=== PATIENT | female | born 1935 | race Caucasian/White ===

== ENCOUNTER → 2016-09-01 | Outpatient (CLI) | payer MEDICARE, OTHER ==
[~2016-09-01] MED LIST: ALDACTONE 25MG25 M1 PO; ALPRAZOLAM0.5 MG PO; ASPIR-LOW81 MG PO; ASPIR-LOX325 MG PO; ASPIRIN 81M81 MG/TA2 PO; ASPIRIN E.C. 8181 MG PO; ATENOLOL50 MG PO; BENICAR40 MG PO; BETAPACE 80MG80 MG PO; CARDIZEM CD 18180 MG PO; CLARITIN 1010 MG/TAB PO; CLEOCIN HCL300 MG PO; COUMADIN 5MG5 MG/TAB PO; COZAAR 50MG50 MG/TAB PO; COZAAR100 MG PO; ELIQUIS 5MG PO; ENTRESTO 24 MG1 EACH PO; HYGROTON 2525 MG/TAB; K-TAB20 PO; LEVOTHYROXIN0.112 MG PO; LIPITOR 10MG10 MG PO; LOPRESSOR 225 MG/TAB PO; LOPRESSOR 550 MG/TAB PO; NORVASC 5MG5 MG/TAB PO; PACERONE100 MG PO; PACERONE200 MG PO; PACERONE400 MG PO; PLAVIX 75MG TAB75 MG PO; POTASSIUM CH2 MEQ/ML; PRADAXA75 MG PO; SYNTHROID 0.10.15 MG PO; SYNTHROID0.125 MG/T PO; TAZTIA240 PO; XANAX 1MG1 MG PO; XARELTO20 MG PO; [UNRECOGNIZED DRUG - OTHER] PO
== END ==
LOC: MC.RAD 08:11
DX: Z12.31 Encounter for screening mammogram for malignant neoplasm of breast (principal)

== ENCOUNTER 2016-09-06 10:55 | Day surgery (SDC) | payer MEDICARE, OTHER ==
[~2016-09-06] VITALS: Ht 165.4 cm; Wt 66.0 kg
[2016-09-06] VITALS (11 sets, daily range): BP systolic 128–206; BP diastolic 54–120; PULSE 46–92; TEMP 96.9
[~2016-09-06 10:55] MED LIST changes: -ALDACTONE 25MG25 M1 PO; -ASPIRIN E.C. 8181 MG PO; -ELIQUIS 5MG PO; -ENTRESTO 24 MG1 EACH PO; -HYGROTON 2525 MG/TAB; -LOPRESSOR 550 MG/TAB PO; -PACERONE200 MG PO; -PLAVIX 75MG TAB75 MG PO
[2016-09-06] MEDS ORDERED: ASPIRIN E.C. 8181 MG PO (12:19)
[2016-09-06] MEDS ORDERED: LOPRESSOR 550 MG/TAB PO (12:20)
[2016-09-06] MEDS ORDERED: LIPITOR 10MG10 MG PO (12:21)
[2016-09-06] MEDS ORDERED: ELIQUIS 5MG PO (12:23)
[2016-09-06] MEDS ORDERED: HYGROTON 2525 MG/TAB (12:24)
[2016-09-06 13:19] LABS: INR 1.6 (0.8-3.0)
[2016-09-06 13:21] LABS: POTASSIUM 3.8 mmol/L (3.4-5.0)
[2016-09-06 13:57] LABS: THYROID STIMULATING HORMONE 0.743 uIU/mL (0.465-4.680)
[2016-09-06] MEDS ORDERED: PACERONE200 MG PO (15:08)
== END 2016-09-06 16:45 | disposition home or self-care (01) ==
LOC: EUO 10:55 → COL.RAD 11:00 → EUO 16:45
PROVIDERS: Internal Medicine Interventional Cardiology
DX: I48.0 Paroxysmal atrial fibrillation (principal); I10 Essential (primary) hypertension; I34.0 Nonrheumatic mitral (valve) insufficiency; Z79.899 Other long term (current) drug therapy; Z79.82 Long term (current) use of aspirin; Z79.01 Long term (current) use of anticoagulants
CPT/HCPCS: J2250; J3010; J7030

== ENCOUNTER 2016-10-21 18:09 | Observation (INO) | payer MEDICARE, OTHER ==
[~2016-10-21] VITALS: Ht 165.3 cm; Wt 65.0 kg
[~2016-10-21 18:09] MED LIST changes: +ASPIRIN E.C. 8181 MG PO; +ELIQUIS 5MG PO; +HYGROTON 2525 MG/TAB; +LOPRESSOR 550 MG/TAB PO; +PACERONE200 MG PO
[2016-10-22] VITALS (8 sets, daily range): BP systolic 120–184; BP diastolic 42–70; PULSE 46–54; TEMP 97.6
[2016-10-22] MEDS ORDERED: LIPITOR 10MG10 MG PO (08:25)
[2016-10-22 09:10] LABS: HEMOGLOBIN 15.2 g/dl (12.5-16.0); MEAN CELL VOLUME 95 fl (80.0-100.0); MEAN CORPUSCULAR HEMOGLOBIN 32 pg (27.0-31.0); MEAN CORPUSCULAR HGB CONC 34 g/dl (33.0-37.0); MEAN PLATELET VOLUME 9.6 fl (7.4-10.4); PLATELET COUNT 211 K/mm3 (130-400); RED BLOOD COUNT 4.74 M/mm3 (4.10-5.30); REDCELL DISTRIBUTION WIDTH-CV 14.5 % (11.5-14.5); WHITE BLOOD COUNT 6.5 K/mm3 (4.8-10.8)
[2016-10-22 09:28] LABS: INR 1.1 (0.8-3.0); PROTHROMBIN TIME 12.4 SECONDS (9.7-12.8)
[2016-10-22 09:29] LABS: CALCIUM 9.4 mg/dL (8.4-10.2); CREATININE, serum 0.93 mg/dL (0.52-1.25); POTASSIUM 4.1 mmol/L (3.4-5.0)
[2016-10-22 09:31] LABS: PARTIAL THROMBOPLASTIN TIME 32.9 SECONDS (26.0-37.0)
[2016-10-22] MEDS ORDERED: ENTRESTO 24 MG1 EACH PO (10:39)
[2016-10-22] MEDS ORDERED: PLAVIX 75MG TAB75 MG PO (17:54)
[2016-10-22] MEDS ORDERED: ALDACTONE 25MG25 M1 PO (18:47)
[2016-10-23 03:31] VITALS: BP 125/43; PULSE 50; TEMP 97.8
== END 2016-10-23 08:30 | disposition home or self-care (01) ==
LOC: MEDICAL 18:09
PROVIDERS: Internal Medicine Cardiovascular Disease
DX: I25.10 Atherosclerotic heart disease of native coronary artery without angina pectoris (principal); I34.0 Nonrheumatic mitral (valve) insufficiency; I50.22 Chronic systolic (congestive) heart failure; R00.1 Bradycardia, unspecified; I48.91 Unspecified atrial fibrillation; I73.9 Peripheral vascular disease, unspecified; I10 Essential (primary) hypertension
CPT/HCPCS: C1760; C1769; J0153; J1644; J2250; J3010; Q9967

== ENCOUNTER 2018-04-23 18:18 | Emergency (ER) | payer MEDICARE, OTHER ==
[~2018-04-23] VITALS: Ht 165.1 cm; Wt 65.9 kg
[~2018-04-23 18:18] MED LIST changes: +ALDACTONE 25MG25 M1 PO; +ENTRESTO 24 MG1 EACH PO; +PLAVIX 75MG TAB75 MG PO
[2018-04-23 18:25] VITALS: TEMP 96.7
[2018-04-23] MEDS ORDERED: XARELTO20 MG PO (18:33)
[2018-04-23] MEDS ORDERED: LASIX 20MG TABL20 MG PO (18:34)
[2018-04-23 18:58] LABS: BASO # 0.1 (0.0-0.2); BASO % 0.7 % (0.0-2.0); EOS # 0.1 (0.0-0.7); EOS % 1.6 % (0-4.0); GRAN # 4.8 (1.4-6.5); GRAN % 70.7 % (42.2-75.2); HEMATOCRIT 42.3 % (37.0-47.0); HEMOGLOBIN 14.2 g/dl (12.5-16.0); LYMPH % 15.3 % (20.0-51.0); MEAN CELL VOLUME 97 fl (80.0-100.0); MEAN CORPUSCULAR HEMOGLOBIN 33 pg (27.0-31.0); MEAN CORPUSCULAR HGB CONC 34 g/dl (33.0-37.0); MEAN PLATELET VOLUME 10.2 fl (7.4-10.4); MONO # 0.8 (0.1-0.6); MONO % 11.6 % (1.7-9.3); PLATELET COUNT 220 K/mm3 (130-400); RED BLOOD COUNT 4.35 M/mm3 (4.10-5.30); REDCELL DISTRIBUTION WIDTH-CV 13.3 % (11.5-14.5)
[2018-04-23 19:11] LABS: ALANINE AMINOTRANSFERASE 45 U/L (9-52); ALBUMIN 4.5 gm/dL (3.5-5.0); ALKALINE PHOSPHATASE 76 U/L (50-136); ANION GAP 10 mmol/L (7-16); AST,SGOT 51 U/L (15-37); BILIRUBIN,TOTAL 1.1 mg/dL (0.0-1.0); BLOOD UREA NITROGEN 16 mg/dL (7-17); CALCIUM 9.2 mg/dL (8.4-10.2); CARBON DIOXIDE 28 mmol/L (22-30); CHLORIDE 94 mmol/L (98-107); CREATININE, serum 0.94 mg/dL (0.52-1.25); GLUCOSE 118 mg/dL (74-106); POTASSIUM 3.6 mmol/L (3.4-5.0); SODIUM 131 mmol/L (137-145); TOTAL PROTEIN 8.8 gm/dL (6.4-8.2)
[2018-04-23 19:33] LABS: TROPONIN-I < 0.012 ng/mL (0.000-0.034)
[2018-04-23 20:05] VITALS: BP 135/88; PULSE 55
== END 2018-04-23 20:05 | disposition home or self-care (01) ==
LOC: COL.ER 18:18
PROVIDERS: Emergency Medicine
DX: I48.91 Unspecified atrial fibrillation (principal); Z86.73 Personal history of transient ischemic attack (TIA), and cerebral infarction without residual deficits; Z79.01 Long term (current) use of anticoagulants; Z79.82 Long term (current) use of aspirin
CPT/HCPCS: J2704

== ENCOUNTER 2018-09-21 13:26 | Day surgery (SDC) | payer MEDICARE, OTHER ==
[~2018-09-21] VITALS: Ht 165.1 cm; Wt 67.9 kg
[~2018-09-21 13:26] MED LIST changes: +LASIX 20MG TABL20 MG PO
[2018-09-21 14:16] LABS: INR 1.6 (0.8-3.0); PROTHROMBIN TIME 18.5 SECONDS (9.7-12.8)
[2018-09-21 14:23] LABS: POTASSIUM 4.4 mmol/L (3.4-5.0)
[2018-09-21] MEDS ORDERED: COZAAR100 MG PO (14:24)
[2018-09-21] MEDS ORDERED: MAG-OX 400400 MG/TAB PO (14:26)
[2018-09-21 14:54] LABS: THYROID STIMULATING HORMONE 0.642 uIU/mL (0.465-4.680)
[2018-09-21 15:05] VITALS: BP 142/91; PULSE 83; TEMP 98
[2018-09-21 15:30] VITALS: BP 115/58; PULSE 59
[2018-09-21 15:45] VITALS: BP 119/58; PULSE 66
[2018-09-21 16:00] VITALS: BP 128/58; PULSE 66
--- NOTE | 2018-09-21 16:15 | NUR ---
DISCHARGE INSTRUCTIONS GIVEN TO PT.PT VERBALIZES UNDERSTANDING.INT REMOVED,CATHETER TIP INTACT.
== END 2018-09-21 16:44 | disposition home or self-care (01) ==
LOC: COL.CAR 13:26
PROVIDERS: Internal Medicine Interventional Cardiology
DX: I48.0 Paroxysmal atrial fibrillation (principal); I25.10 Atherosclerotic heart disease of native coronary artery without angina pectoris; I10 Essential (primary) hypertension; Z79.01 Long term (current) use of anticoagulants; I73.9 Peripheral vascular disease, unspecified; E03.9 Hypothyroidism, unspecified; Z86.73 Personal history of transient ischemic attack (TIA), and cerebral infarction without residual deficits; Z79.899 Other long term (current) drug therapy; Z79.82 Long term (current) use of aspirin; Z95.0 Presence of cardiac pacemaker
CPT/HCPCS: J2704; J7030

== ENCOUNTER → 2018-10-17 | Outpatient (CLI) | payer MEDICARE, OTHER ==
[~2018-10-17] MED LIST changes: +MAG-OX 400400 MG/TAB PO
== END ==
LOC: MC.RAD 09-01 10:40
DX: Z12.31 Encounter for screening mammogram for malignant neoplasm of breast (principal)

== ENCOUNTER 2019-02-16 11:25 | Day surgery (SDC) | payer MEDICARE, OTHER ==
[~2019-02-16] VITALS: Ht 165.1 cm; Wt 69.4 kg
[2019-02-16 12:09] VITALS: BP 153/84; PULSE 69; TEMP 97.1
[2019-02-16 13:24] LABS: INR 1.8 (0.8-3.0); PROTHROMBIN TIME 21.9 SECONDS (9.7-12.8)
[2019-02-16 13:52] VITALS: BP 155/73; PULSE 60; TEMP 97
--- NOTE | 2019-02-16 13:57 | NUR ---
Patient tolerated cardioversion and BARAK. PAtient A&Ox4, denies pain and discomfort. IV CDI. VSS. Post op VS being monitored. No further needs expressed from patient. Call light within reach
[2019-02-16 14:07] VITALS: BP 155/73; PULSE 60
[2019-02-16 14:22] VITALS: BP 156/79; PULSE 61; TEMP 97
--- NOTE | 2019-02-16 14:28 | NUR ---
Patient tolerating sips of water without difficulty. Discharge paperwork reviewed with patient and family. Patient verbalzied an understanding of following doctors orders. VSS. Post op VS being monitored. No further needs expressed from patient. Call light within reach
[2019-02-16 14:30] VITALS: BP 153/85; PULSE 61
--- NOTE | 2019-02-16 14:58 | NUR ---
IV removed, tip intact, gauze and coban applied. No further needs expressed from patient. Patient transfered by nursing staff by wheelchair to vehicle with . Personal belongings and discharge paperwork with patient
== END 2019-02-16 15:15 | disposition home or self-care (01) ==
LOC: COL.CAR 11:25
PROVIDERS: Internal Medicine Interventional Cardiology
DX: I48.0 Paroxysmal atrial fibrillation (principal); I34.0 Nonrheumatic mitral (valve) insufficiency; I36.1 Nonrheumatic tricuspid (valve) insufficiency; I11.0 Hypertensive heart disease with heart failure; I50.22 Chronic systolic (congestive) heart failure; I73.9 Peripheral vascular disease, unspecified; I70.1 Atherosclerosis of renal artery; F41.9 Anxiety disorder, unspecified; E03.9 Hypothyroidism, unspecified; Z95.0 Presence of cardiac pacemaker; Z88.1 Allergy status to other antibiotic agents; Z88.2 Allergy status to sulfonamides; Z79.82 Long term (current) use of aspirin; Z79.01 Long term (current) use of anticoagulants; Z86.73 Personal history of transient ischemic attack (TIA), and cerebral infarction without residual deficits; Z82.49 Family history of ischemic heart disease and other diseases of the circulatory system
CPT/HCPCS: J2370; J2704; J7120

== ENCOUNTER → 2019-12-27 | Outpatient (CLI) | payer MEDICARE, OTHER | LOC: MC.RAD 08:28 | DX: Z12.31 Encounter for screening mammogram for malignant neoplasm of breast (principal) ==

== ENCOUNTER → 2020-03-05 | Outpatient (CLI) | payer MEDICARE, OTHER ==
[~2020-03-05] MED LIST changes: -LOPRESSOR 225 MG/TAB PO; +TOPROL XL 50MG50 MG PO
[2020-03-06 15:11] LABS: TROPONIN-I < 0.012 ng/mL (0.000-0.035)
== END ==
LOC: ZCOL.LAB 17:00
PROVIDERS: Internal Medicine Interventional Cardiology
DX: I10 Essential (primary) hypertension (principal); I50.22 Chronic systolic (congestive) heart failure; R06.02 Shortness of breath

== ENCOUNTER → 2020-08-18 | Outpatient (CLI) | payer MEDICARE, OTHER ==
[2020-08-18 17:15] LABS: ANION GAP 7 mmol/L (7-16); BLOOD UREA NITROGEN 12 mg/dL (7-17); CALCIUM 8.7 mg/dL (8.4-10.2); CARBON DIOXIDE 27 mmol/L (22-30); CHLORIDE 90 mmol/L (98-107); GLUCOSE 106 mg/dL (74-106); POTASSIUM 4.5 mmol/L (3.4-5.0); SODIUM 124 mmol/L (137-145)
[2020-08-18 17:32] LABS: MEAN CELL VOLUME 88 fl (80.0-100.0); MEAN CORPUSCULAR HGB CONC 31 g/dl (33.0-37.0); PLATELET COUNT 254 K/mm3 (130-400); RED BLOOD COUNT 3.53 M/mm3 (4.10-5.30); REDCELL DISTRIBUTION WIDTH-CV 16.2 % (11.5-14.5)
[2020-08-18 17:45] LABS: HEMOGLOBIN 9.6 g/dl (12.5-16.0); MEAN CORPUSCULAR HEMOGLOBIN 27 pg (27.0-31.0)
[2020-08-18 17:46] LABS: TROPONIN-I < 0.012 ng/mL (0.000-0.035)
== END ==
LOC: COL.RAD 16:08
PROVIDERS: Internal Medicine Interventional Cardiology
DX: I51.7 Cardiomegaly (principal); J90 Pleural effusion, not elsewhere classified; Z20.822 Contact with and (suspected) exposure to COVID-19; R53.81 Other malaise

== ENCOUNTER → 2020-09-15 | Outpatient (CLI) | payer MEDICARE, OTHER ==
[~2020-09-15] MED LIST changes: +DEMADEX 20MG20 M1 PO
[2020-09-15 14:57] LABS: TROPONIN-I < 0.012 ng/mL (0.000-0.035)
== END ==
LOC: ZCOL.LAB 13:08
PROVIDERS: Nurse Practitioner
DX: R06.02 Shortness of breath (principal)

== ENCOUNTER 2020-09-24 14:56 | Inpatient (IN) | payer MEDICARE, OTHER ==
[2020-09-24] VITALS (112 sets, daily range): BP systolic 119–146; BP diastolic 62–84; PULSE 69–78; TEMP 97.3–98.1; O2SAT 92–98
[~2020-09-24] VITALS: Ht 165.1 cm; Wt 72.9 kg
[~2020-09-24 14:56] MED LIST changes: -DEMADEX 20MG20 M1 PO
--- NOTE | 2020-09-24 16:53 | NUR ---
pt arrived in room, oriented to room and call light and phone. assessment performed, pt reports being sob, pt standby assist in bathroom. pt changing into gown.
[2020-09-24] MEDS ORDERED: XARELTO20 MG PO (17:18)
[2020-09-24] MEDS ORDERED: DEMADEX 20MG20 M1 PO (17:19)
--- NOTE | 2020-09-24 17:58 | NUR ---
PT IN BED, GETTING ECHO AND LABS DRAWN, PT AOX4, NOT RELIABLE ON MEDICATIONS, COPY OF MED LIST ON CHART, PT APPEARS TO HELP WITH SOME MEDICATIONS. PT ASSESSMENT PERFORMED, WAITING TO GIVE MEDS UNTIL PHARMACY VERIFIES.
[2020-09-24 18:19] LABS: BASO % 0.7 % (0.0-2.0); EOS % 0.9 % (0-4.0); GRAN # 2.9 (1.4-6.5); GRAN % 68.9 % (42.2-75.2); LYMPH # 0.8 (1.2-3.4); LYMPH % 17.8 % (20.0-51.0); MEAN CELL VOLUME 82 fl (80.0-100.0); MEAN CORPUSCULAR HGB CONC 32 g/dl (33.0-37.0); MONO # 0.5 (0.1-0.6); PLATELET COUNT 224 K/mm3 (130-400); RED BLOOD COUNT 3.24 M/mm3 (4.10-5.30); REDCELL DISTRIBUTION WIDTH-CV 17.3 % (11.5-14.5)
[2020-09-24 18:23] LABS: MAGNESIUM 1.8 mg/dL (1.6-2.3); PHOSPHOROUS 3.2 mg/dL (2.5-4.5)
[2020-09-24 18:30] LABS: HEMATOCRIT 26.5 % (37.0-47.0); HEMOGLOBIN 8.4 g/dl (12.5-16.0); MEAN CORPUSCULAR HEMOGLOBIN 26 pg (27.0-31.0)
--- NOTE | 2020-09-24 21:00 | NUR ---
Assessment charted and complete. Patient arrived to ICU 5 at 2100.
--- NOTE | 2020-09-24 21:18 | NUR ---
2100- REPORT OFF TO CATIA. PT TRANSFERED PER W/C [facility]. UPDATED OF NEED FOR CLOSER MONITORING.
--- NOTE | 2020-09-24 21:45 | NUR ---
Patient current dobutamine gtt order at 6ml/hr. Patient blood pressures 130-[address] Araujo. Per Dr. Araujo start nitroglycerin drip in addition to dobutamine. Change dobutamine to titratable and keep systolic BP between 100-110.
--- NOTE | 2020-09-24 22:30 | NUR ---
Patient quinonez inserted and drips started at this time.
[2020-09-25] VITALS (595 sets, daily range): BP systolic 71–123; BP diastolic 44–81; PULSE 77–103; TEMP 96.8–99.2; O2SAT 92–98
--- NOTE | 2020-09-25 00:51 | NUR ---
Patient output over 3 hours is 2700. Spoke with Dr. Wagner at [facility] regarding electrolytes and decreasing lasix gtt. Per Dr. Wagner obtain mag and BMP.
[2020-09-25 01:26] LABS: CALCIUM 8.4 mg/dL (8.4-10.2); CREATININE, serum 1.24 (0.52-1.25); MAGNESIUM 1.7 mg/dL (1.6-2.3); POTASSIUM 3.2 mmol/L (3.4-5.0)
--- NOTE | 2020-09-25 06:39 | NUR ---
Patient resting in bed this AM. Continues on drips as ordered. Denies needs this AM. Call light in reach.
[2020-09-25 06:53] LABS: CALCIUM 8.6 mg/dL (8.4-10.2); CREATININE, serum 1.2 (0.52-1.25); POTASSIUM 3.5 mmol/L (3.4-5.0)
--- NOTE | 2020-09-25 07:35 | NUR ---
RECEIVED REPORT FROM MARGARET BARDALES. PATIENT IS RESTING WITH EYES CLOSED IN BED. SEE TITRATION FLOWSHEET FOR GTTS. SMITH PATENT DRAINING TO GRAVITY, VSS, CALL LIGHT WITHIN REACH.
--- NOTE | 2020-09-25 07:42 | NUR ---
Report given to MARGARET Robbins
--- NOTE | 2020-09-25 08:15 | NUR ---
SPOKE TO JOAQUÍN TAHO REGARDING NITRO PATCH WELL HAVING NITRO GTT FOR PT. AGREED TO HOLD PATCH AND STATED WILL PLACE ORDERS FOR DISCONTINUATION.
--- NOTE | 2020-09-25 08:20 | NUR ---
RANP AT BEDSIDE. POSSIBILITY OF DISCHARGE TOMORROW.
--- NOTE | 2020-09-25 08:55 | NUR ---
MANUAL BP TAKEN ON PATIENT BECAUSE OF AFIB INTERFERENCE WITH AUTOMATIC CUFF.
--- NOTE | 2020-09-25 11:10 | NUR ---
SPOKE TO MARIELLA TEJEDA. WANTED CONSULT WITH PT/OT. ORDERS RECEIVED.
--- NOTE | 2020-09-25 13:23 | NUR ---
Electric Wheelchair Repairer met with the patient and the patient's , Andi. They live in [place]. The patient denies DME use and is independent. The patient's PCP is Dr. Conklin and patient receives medications from [facility]. The patient has been going to cardio rehab twice a week for the last 30 days and will continue once she discharges. The patient has advanced directives in the EMR. The patient plans to return home with Andi. SW staffed with the patient's nurse to order PT/OT. There are no additional needs at this time.
--- NOTE | 2020-09-25 13:37 | NUR ---
CALLED PT TO CONFIRM CONSULT. SAID THEY WILL BE UP.
--- NOTE | 2020-09-25 20:00 | NUR ---
Assessment complete and charted. Up to bedside commode and returned to bed. Denies pain. Denies needs at this time. Call light in reach.
--- NOTE | 2020-09-25 20:30 | NUR ---
Per verbal order from Dr. Araujo. Please increase dobutamine and nitroglycerin to higher dosing to increase diuresis. Will attempt to titrate.
--- NOTE | 2020-09-25 21:35 | NUR ---
Patient having decreased urine output. Did not tolerated increasing dobutamine and nitro as Dr. Araujo requested. Spoke with Dr. Araujo regarding decreased output and toleration to drip changes. Per Dr. Araujo no new orders allow patient to rest tonight and will reassess in AM.
--- NOTE | 2020-09-25 23:57 | NUR ---
Assessment complete and charted. Patient reported 3/10 generalized aches. Spoke with Gwen provider and obtained order for tylenol. Provided to patient and assisted with repositioning. Denies other needs at this time.
--- NOTE | 2020-09-25 23:59 | NUR ---
Patient placed on 2 liters O2 for sautrations in upper 80s while asleep.
[2020-09-26] VITALS (386 sets, daily range): BP systolic 76–120; BP diastolic 45–75; PULSE 79–102; TEMP 98.1–98.6; O2SAT 89–100
--- NOTE | 2020-09-26 04:16 | NUR ---
Patient awoke disoriented. Patient easily reorientated to surroundings. Denies needs at this time.
[2020-09-26 05:50] LABS: CALCIUM 8.6 mg/dL (8.4-10.2); CREATININE, serum 1.25 (0.52-1.25); POTASSIUM 3.5 mmol/L (3.4-5.0)
--- NOTE | 2020-09-26 06:23 | NUR ---
Patient required x1 dose of tylenol throughout night. Patient remains on dobutamine, nitro, and lasix gtts. Denies needs this AM. Potassium replacement ordered. Call light in reach.
--- NOTE | 2020-09-26 07:26 | NUR ---
Report given to MARGARET Robbins
--- NOTE | 2020-09-26 11:40 | NUR ---
SPOKE TO DR. HOLLAND AND WILY THAO REGARDING PATIENT'S DECREASED OUTPUT AND INCREASED CONCENTRATION OF URINE. ORDERS RECEIVED. HAVE CONFIRMED ON DISCHARGE FOR TODAY.
--- NOTE | 2020-09-26 11:52 | NUR ---
PT/OT are recommending post acute rehab for the patient. SW met with the patient and her , Andi to present [email or web address]'s list of facilites that serve the [facility]. The would like to review the list then inform this SW.
--- NOTE | 2020-09-26 12:38 | NUR ---
PATIENT HAD STATED THAT SHE WAS FEELING SOME SORENESS IN HER ARM AROUND IV SITES WHEN PALPATED. I OFFERED TO SWITCH HER SITES TO THE OTHER ARM AND SHE REFUSED. IV SITE APPEARS PATENT AND UNINFLAMED AT THIS TIME.
--- NOTE | 2020-09-26 13:30 | NUR ---
The patient is ready for discharge today. MARIELLA met with the patient and her and they would like to return home. MARIELLA discussed home health options and [facility]. Referral faxed. MARIELLA contacted Emerald with [facility] and informed her of the referral. Awaiting response.
--- NOTE | 2020-09-26 15:50 | NUR ---
PATIENT DISCHARGED VIA WHEELCHAIR. ALL PERSONAL BELONGINGS COLLECTED AND GIVEN TO SPOUSE. TAKEN TO EMERGENCY ENTRANCE WHERE SPOUSE TOOK HER HOME.
--- NOTE | 2020-09-26 15:56 | NUR ---
The patient discharged home today, 09/26 with [facility] with PT/OT/Nursing services. Emerald Marsh reports they will be out to see the patient on Tuesday, 09/28. Discharge orders faxed. There are no additional needs.
--- NOTE | 2020-09-29 11:46 | NUR ---
MARIELLA verified start of Home health care with [facility]
== END 2020-09-26 15:45 | disposition home health service (06) | DRG 293 ==
LOC: MEDICAL 16:08 → ICU 20:28
PROVIDERS: Internal Medicine Pulmonary Disease; Nurse Practitioner; ADMIT Internal Medicine Interventional Cardiology
DX: I11.0 Hypertensive heart disease with heart failure (principal); I50.23 Acute on chronic systolic (congestive) heart failure; I48.0 Paroxysmal atrial fibrillation; I08.1 Rheumatic disorders of both mitral and tricuspid valves; I73.9 Peripheral vascular disease, unspecified; Z79.01 Long term (current) use of anticoagulants; Z88.2 Allergy status to sulfonamides
CPT/HCPCS: A4314; J1250; J1940; J7030

== ENCOUNTER 2021-02-13 06:50 | Day surgery (SDC) | payer MEDICARE, OTHER ==
[2021-02-13] VITALS (8 sets, daily range): BP systolic 91–132; BP diastolic 40–68; PULSE 60–74; TEMP 97.8
[~2021-02-13] VITALS: Ht 165.2 cm; Wt 72.3 kg
[~2021-02-13 06:50] MED LIST changes: +DEMADEX 20MG20 M1 PO
[2021-02-13 08:14] LABS: INR 3.4 (0.8-3.0); PROTHROMBIN TIME 37.9 SECONDS (9.7-12.8)
[2021-02-13 08:19] LABS: POTASSIUM 4.1 mmol/L (3.4-5.0)
[2021-02-13] MEDS ORDERED: ENTRESTO 24 MG1 EACH PO (08:41)
[2021-02-13] MEDS ORDERED: DEMADEX 20MG20 M1 PO (08:44)
[2021-02-13 08:53] LABS: THYROID STIMULATING HORMONE 3.88 uIU/mL (0.465-4.680)
--- NOTE | 2021-02-13 11:22 | NUR ---
Pt escorted out via wheelchair by Violeta Reddy.
== END 2021-02-13 11:25 ==
LOC: COL.CAR 06:50
PROVIDERS: Internal Medicine Interventional Cardiology
DX: I48.0 Paroxysmal atrial fibrillation (principal); I11.0 Hypertensive heart disease with heart failure; I25.10 Atherosclerotic heart disease of native coronary artery without angina pectoris; I50.22 Chronic systolic (congestive) heart failure; E07.9 Disorder of thyroid, unspecified; I08.1 Rheumatic disorders of both mitral and tricuspid valves; I73.9 Peripheral vascular disease, unspecified; F41.9 Anxiety disorder, unspecified; Z79.82 Long term (current) use of aspirin; Z79.899 Other long term (current) drug therapy; Z95.828 Presence of other vascular implants and grafts; Z86.73 Personal history of transient ischemic attack (TIA), and cerebral infarction without residual deficits; Z95.0 Presence of cardiac pacemaker; Z79.890 Hormone replacement therapy
CPT/HCPCS: J2370; J2704; J7030

== ENCOUNTER 2021-07-08 13:47 | Outpatient (RCR) | payer MEDICARE, OTHER ==
[~2021-07-08] VITALS: Ht 165.1 cm; Wt 75.9 kg
[~2021-07-08 13:47] MED LIST changes: +LIPITOR 40MG TA40 MG PO
[2021-07-08] MEDS ORDERED: FARXIGA10 PO (14:13)
[2021-07-08] MEDS ORDERED: BYSTOLIC5 MG PO (14:14)
[2021-07-08 14:30] VITALS: BP 143/63; PULSE 64; TEMP 98
[2021-07-08 15:12] VITALS: BP 132/58; PULSE 70
== END 2021-07-17 ==
LOC: EUO → EDSTATUS 14:00
DX: D50.9 Iron deficiency anemia, unspecified (principal)
CPT/HCPCS: J1756

== ENCOUNTER 2021-07-22 13:57 | Outpatient (RCR) | payer MEDICARE, OTHER ==
[~2021-07-22] VITALS: Ht 165.1 cm; Wt 75.9 kg
[~2021-07-22 13:57] MED LIST changes: +BYSTOLIC5 MG PO; +FARXIGA10 PO
[2021-07-22 14:15] VITALS: BP 118/70; PULSE 78; TEMP 97.8
[2021-07-27] MEDS ORDERED: CIPRO 500MG TA500 MG PO (19:21)
[2021-07-29] MEDS ORDERED: K-TAB20 PO (22:18)
[2021-07-29] MEDS ORDERED: ASPIRIN 81M81 MG/TA2 PO (22:18)
[2021-08-01] MEDS ORDERED: XARELTO15 MG PO (11:52)
[2021-08-01] MEDS ORDERED: PREDNISONE20 MG PO (11:53)
[2021-08-01] MEDS ORDERED: SYNTHROID 0.10.15 MG PO (11:54)
[2021-08-01] MEDS ORDERED: OMNICEF 300MG300 MG PO (11:54)
--- NOTE | 2021-08-03 14:49 | NUR ---
Pt called to report pt is in [facility] and per SNF insturctions to him, he needs to cancel further appointments until discharge from SNF.
== END 2021-08-03 14:50 ==
LOC: EUO 13:57
DX: D50.9 Iron deficiency anemia, unspecified (principal)
CPT/HCPCS: J1756

== ENCOUNTER 2021-07-27 14:11 | Emergency (ER) | payer MEDICARE, OTHER ==
[~2021-07-27] VITALS: Ht 165.1 cm; Wt 74.5 kg
[2021-07-27 14:19] VITALS: TEMP 97.4
[2021-07-27 15:39] LABS: BASO # 0.1 K/mm3 (0.0-0.2); BASO % 0.3 % (0.0-2.0); EOS # 0.1 K/mm3 (0.0-0.7); EOS % 0.6 % (0.0-4.0); GRAN # 13.9 K/mm3 (1.4-6.5); GRAN % 89.8 % (42.2-75.2); HEMATOCRIT 28.1 % (37.0-47.0); HEMOGLOBIN 8.3 g/dl (12.5-16.0); LYMPH # 0.3 K/mm3 (1.2-3.4); LYMPH % 2.1 % (20.0-51.0); MEAN CELL VOLUME 79 fl (80.0-100.0); MEAN CORPUSCULAR HEMOGLOBIN 23 pg (27-31); MEAN CORPUSCULAR HGB CONC 30 g/dl (33.0-37.0); MEAN PLATELET VOLUME 9.2 fl (7.4-10.4); MONO % 6.1 % (1.7-9.3); PLATELET COUNT 248 K/mm3 (130-400); RED BLOOD COUNT 3.57 M/mm3 (4.10-5.30); REDCELL DISTRIBUTION WIDTH-CV 25.8 % (11.5-14.5)
[2021-07-27 15:53] LABS: ALBUMIN 3.3 gm/dL (3.4-4.8); BILIRUBIN,TOTAL 1.4 mg/dL (0.2-1.2); CALCIUM 8.3 mg/dL (8.4-10.2); POTASSIUM 4.9 mmol/L (3.5-4.5); TOTAL PROTEIN 7.6 gm/dL (6.2-8.1)
[2021-07-27 18:25] LABS: MUCOUS Present (NOT PRESENT); PH 5 (5-8); SQUAMOUS EPITHELIAL None Seen /hpf (0-10); URINE APPEARANCE Cloudy (CLEAR/HAZY); URINE BACTERIA Rare /hpf (NONE SEEN); URINE BILIRUBIN Negative (NEGATIVE); URINE BLOOD 2+ (NEGATIVE); URINE COLOR Yellow (YELLOW); URINE GLUCOSE 3+ (NEGATIVE); URINE KETONE Negative (NEGATIVE); URINE LEUKOCYTE ESTERASE Trace (NEGATIVE); URINE NITRATE Negative (NEGATIVE); URINE PROTEIN(semi-quant) 2+ (NEGATIVE); URINE RBC 20-50 /hpf (0-2); URINE UROBILINOGEN Negative (NEGATIVE); URINE WBC >50 /hpf (0-2)
[2021-07-27 18:27] LABS: COLLECTION METHOD CATHETER
[2021-07-27] MEDS ORDERED: CIPRO 500MG TA500 MG PO (19:21)
[2021-07-27 19:44] VITALS: BP 115/63; PULSE 75
== END 2021-07-27 19:52 | disposition home or self-care (01) ==
LOC: COL.ER 14:11
PROVIDERS: Personal Emergency Response Attendant
DX: S80.812A Abrasion, left lower leg, initial encounter (principal); R42 Dizziness and giddiness; D72.829 Elevated white blood cell count, unspecified; R79.89 Other specified abnormal findings of blood chemistry; N39.0 Urinary tract infection, site not specified; N28.9 Disorder of kidney and ureter, unspecified; R19.7 Diarrhea, unspecified; I50.9 Heart failure, unspecified; I48.91 Unspecified atrial fibrillation; Z86.73 Personal history of transient ischemic attack (TIA), and cerebral infarction without residual deficits; Z79.01 Long term (current) use of anticoagulants; Z79.899 Other long term (current) drug therapy; W19.XXXA Unspecified fall, initial encounter; Y92.009 Unspecified place in unspecified non-institutional (private) residence as the place of occurrence of the external cause
CPT/HCPCS: J0696; J7040

== ENCOUNTER 2021-07-29 15:10 | Inpatient (IN) | payer MEDICARE, OTHER ==
[~2021-07-29] VITALS: Ht 165.1 cm; Wt 78.9 kg
[~2021-07-29 15:10] MED LIST changes: +CIPRO 500MG TA500 MG PO
[2021-07-29 18:23] LABS: BASO % 0.3 % (0.0-2.0); EOS # 0.1 K/mm3 (0.0-0.7); EOS % 0.6 % (0.0-4.0); GRAN # 11.2 K/mm3 (1.4-6.5); GRAN % 88.7 % (42.2-75.2); HEMATOCRIT 31.3 % (37.0-47.0); HEMOGLOBIN 8.9 g/dl (12.5-16.0); LYMPH # 0.5 K/mm3 (1.2-3.4); LYMPH % 4.1 % (20.0-51.0); MEAN CELL VOLUME 82 fl (80.0-100.0); MEAN CORPUSCULAR HEMOGLOBIN 23 pg (27-31); MEAN CORPUSCULAR HGB CONC 28 g/dl (33.0-37.0); MEAN PLATELET VOLUME 9.2 fl (7.4-10.4); MONO # 0.7 K/mm3 (0.1-0.6); MONO % 5.4 % (1.7-9.3); PLATELET COUNT 244 K/mm3 (130-400); RED BLOOD COUNT 3.84 M/mm3 (4.10-5.30)
[2021-07-29 18:41] LABS: ALBUMIN 2.9 gm/dL (3.4-4.8); BILIRUBIN,TOTAL 0.8 mg/dL (0.2-1.2); CALCIUM 8.3 mg/dL (8.4-10.2); CREATININE, serum 2.52 mg/dL (0.57-1.11); TOTAL PROTEIN 7.4 gm/dL (6.2-8.1)
[2021-07-29 18:51] LABS: POTASSIUM 5.8 mmol/L (3.5-4.5)
--- NOTE | 2021-07-29 21:40 | NUR ---
RECEIVED REPORT FROM REAL ESTATE SALES AGENTKEVIN. PATIENT ARRIVAL FOR ADMIT TO 345 PENDING.
[2021-07-29] MEDS ORDERED: K-TAB20 PO (22:18)
[2021-07-29] MEDS ORDERED: ASPIRIN 81M81 MG/TA2 PO (22:18)
[2021-07-29 22:53] LABS: MAGNESIUM 2.2 mg/dL (1.6-2.6)
[2021-07-29 23:13] LABS: TSH w REFLEX 9.661 uIU/mL (0.350-4.940)
--- NOTE | 2021-07-29 23:25 | NUR ---
PATIENT ARRIVED TO ROOM PER ER CART WITH ER PCT TRANSPORTING PATIENT.
[2021-07-29 23:35] VITALS: BP 135/69; PULSE 102; TEMP 98
--- NOTE | 2021-07-30 00:09 | NUR ---
ATTEMPT TO REVIEW HOME MEDS WITH PATIENT, PATIENT UNABLE TO RECALL MEDS TAKEN, REQUESTS THAT HER BE CALLED FOR HOME MED REVIEW.
[2021-07-30 02:33] LABS: CALCIUM 7.8 mg/dL (8.4-10.2); CREATININE, serum 2.01 mg/dL (0.57-1.11); POTASSIUM 5.5 mmol/L (3.5-4.5)
[2021-07-30 04:17] VITALS: BP 126/46; PULSE 63; TEMP 96.9
[2021-07-30 06:13] LABS: MEAN CELL VOLUME 79 fl (80.0-100.0); MEAN CORPUSCULAR HGB CONC 30 g/dl (33.0-37.0); MEAN PLATELET VOLUME 9.7 fl (7.4-10.4); PLATELET COUNT 259 K/mm3 (130-400); REDCELL DISTRIBUTION WIDTH-CV 26.9 % (11.5-14.5)
[2021-07-30 06:17] LABS: HEMATOCRIT 29.1 % (37.0-47.0); HEMOGLOBIN 8.6 g/dl (12.5-16.0); MEAN CORPUSCULAR HEMOGLOBIN 23 pg (27-31)
[2021-07-30 06:29] LABS: CALCIUM 8.3 mg/dL (8.4-10.2); CREATININE, serum 1.86 mg/dL (0.57-1.11); POTASSIUM 5.4 mmol/L (3.5-4.5)
--- NOTE | 2021-07-30 06:49 | NUR ---
Report received from MARGARET Velez. Patient is sleeping in bed. Call light and bedside table are within reach. Will continue to monitor patient throughout shift.
--- NOTE | 2021-07-30 07:21 | NUR ---
CHANGE OF SHIFT REPORT GIVEN TO DAY SHIFT RNMINGO.
--- NOTE | 2021-07-30 07:35 | NUR ---
CALLED [facility]OS[facility].
[2021-07-30 07:46] LABS: ANISOCYTOSIS 1+; BAND 5 % (0-10); LYMPHOCYTE 3 % (20.0-51.0); MICROCYTOSIS 1+; NEUTROPHILS 88 % (42.0-75.2); OVALOCYTES 1+; PLATELET ESTIMATE NORMAL (NORMAL); TARGET CELLS 1+
[2021-07-30 07:47] LABS: POIKILOCYTOSIS 2+; POLYCHROMASIA 1+; SCHISTOCYTES 1+
--- NOTE | 2021-07-30 08:00 | NUR ---
PATIENT IS ORIENTED X2, DISPLAYS SOME CONFUSION. VSS ON TELE. DENIES PAIN OR NAUSEA. PATIENT IS VERY WEAK, SMALL STATURE, AND A LITTLE PALE IN COLOR. PT/OT CONSULTED. 1 ASSIST TO BEDSIDE COMMODE. ON ABX FOR UTI AND REPORTS SOME DIARRHEA. TOLERATING AHA DIET. AM MEDS GIVEN WITH SIPS. IV FLUIDS INFUSING VIA PUMP INTO RIGHT WRIST IV. HEAD TO TOE ASSESSMENT COMPLETE. NOTED FC IN A&P LUNG FIELD BASES. CARDIOLOGY CONSULTED, SEE ORDERS. NOW AT BEDSIDE. CALL LIGHT IN REACH. BED ALARM ON.
[2021-07-30 08:30] VITALS: BP 108/39; PULSE 60; TEMP 97.6
--- NOTE | 2021-07-30 10:23 | NUR ---
industrial workers met with patient to discuss discharge plan. Patient reports that she lives at home with her Feng ([phone]). Patient states that she is fully independent with her activities of daily living and does not utilize any DME to assist with mobility. Patient reports that she does not utilize any oxygen at home. PCP is Dr. Conklin and she utilizes [facility] for medication needs with no cost difficulty. Patient does have a DPOA-HC established and a copy of it can be found in the pateint's EMR. Patient is planning on returning home once medically ready. Discharge plan: Home
--- NOTE | 2021-07-30 10:30 | NUR ---
Initial visit; Patient thanked Configuration Management Administrator for looking in on her and offering comfort and prayer. Configuration Management Administrator will keep patient in her prayers and will follow up while patient is hospitalized.
--- NOTE | 2021-07-30 11:22 | NUR ---
CARDIOLOGY ROUNDING, SEE ORDERS.
[2021-07-30 12:21] VITALS: BP 103/41; PULSE 62; TEMP 97.7
[2021-07-30 14:50] LABS: CALCIUM 7.7 mg/dL (8.4-10.2); CREATININE, serum 1.72 mg/dL (0.57-1.11); POTASSIUM 5.5 mmol/L (3.5-4.5)
[2021-07-30 18:18] VITALS: BP 120/50; PULSE 62; TEMP 98.1
[2021-07-30 18:22] LABS: CALCIUM 7.7 mg/dL (8.4-10.2); CREATININE, serum 1.67 mg/dL (0.57-1.11); POTASSIUM 5.6 mmol/L (3.5-4.5)
--- NOTE | 2021-07-30 20:00 | NUR ---
PT RESTING IN BED. PLEASANTLY CONFUSED. HERE EARLIER. ASSISTED 2:1 TO BSC. PT INCONTINENT OF URINE. WEARS BRIEFS. BACK TO BED. CALL LIGHT IN RECH. BED ALARM SET.
--- NOTE | 2021-07-30 21:22 | NUR ---
PATIENT REFUSED. TOO TIRED AND DOESNT LIKE TXS
[2021-07-30 22:09] LABS: CALCIUM 7.7 mg/dL (8.4-10.2); CREATININE, serum 1.74 mg/dL (0.57-1.11); POTASSIUM 5.4 mmol/L (3.5-4.5)
[2021-07-30 23:30] VITALS: BP 156/50; PULSE 70; TEMP 98.4
--- NOTE | 2021-07-31 03:24 | NUR ---
PT INCONTINENT OF URINE. PLACED ADULT DIAPERS. PT HAD A BLOODY NOSE BUT HAS SINCE STOPPED.
[2021-07-31 03:27] VITALS: BP 112/42; PULSE 63; TEMP 98
[2021-07-31 06:24] LABS: MEAN CELL VOLUME 77 fl (80.0-100.0); MEAN CORPUSCULAR HGB CONC 30 g/dl (33.0-37.0); MEAN PLATELET VOLUME 9.9 fl (7.4-10.4); PLATELET COUNT 253 K/mm3 (130-400); RED BLOOD COUNT 3.19 M/mm3 (4.10-5.30); REDCELL DISTRIBUTION WIDTH-CV 26.5 % (11.5-14.5)
[2021-07-31 06:34] LABS: HEMATOCRIT 24.5 % (37.0-47.0); HEMOGLOBIN 7.4 g/dl (12.5-16.0); MEAN CORPUSCULAR HEMOGLOBIN 23 pg (27-31)
[2021-07-31 06:36] LABS: CALCIUM 8.1 mg/dL (8.4-10.2); CREATININE, serum 1.65 mg/dL (0.57-1.11); POTASSIUM 5.2 mmol/L (3.5-4.5)
[2021-07-31 08:00] VITALS: BP 126/43; PULSE 64; TEMP 97.3
[2021-07-31 08:01] LABS: BAND 4 % (0-10); LYMPHOCYTE 2 % (20.0-51.0); NEUTROPHILS 92 % (42.0-75.2)
[2021-07-31 08:02] LABS: HYPOCHROMIA 3+; OVALOCYTES 1+; POIKILOCYTOSIS 2+; TARGET CELLS 1+
[2021-07-31 08:03] LABS: PLATELET ESTIMATE NORMAL (NORMAL); SCHISTOCYTES 1+
[2021-07-31 08:04] LABS: ANISOCYTOSIS 1+; MICROCYTOSIS 1+; POLYCHROMASIA 1+
--- NOTE | 2021-07-31 08:59 | NUR ---
Pt coughing after drinking some thin liquids. Notified Catherine ROGERS. New orders entered
[2021-07-31 12:05] VITALS: BP 116/40; PULSE 60; TEMP 96.3
--- NOTE | 2021-07-31 13:49 | NUR ---
Speech in recently working with pt. Lunch tray ordered and speech currently working with pt
[2021-07-31 15:40] VITALS: BP 116/41; PULSE 70; TEMP 97.4
--- NOTE | 2021-07-31 18:15 | NUR ---
Pt getting around well with one assist. She is still confused and does require guideance as far as where she is to go. does have concerns about taking her home due to her needs. He did report that pts daughter would be here tomorrow.
[2021-07-31 20:33] VITALS: BP 111/47; PULSE 63; TEMP 97.8
[2021-08-01 00:38] VITALS: BP 137/55; PULSE 60; TEMP 97.7
[2021-08-01 04:42] VITALS: BP 141/55; PULSE 62; TEMP 97.6
--- NOTE | 2021-08-01 07:36 | NUR ---
Pt woke and rang as she needed to use the restroom. Pt was one assist with walker to the bathroom, she did void without difficulty, but was incontinent in a brief as well. Pt has no complaints of pain. Breakfast has been ordered and should arrive shortly
[2021-08-01 07:43] LABS: CALCIUM 8.4 mg/dL (8.4-10.2); CREATININE, serum 1.37 mg/dL (0.57-1.11); POTASSIUM 4.8 mmol/L (3.5-4.5)
[2021-08-01 07:55] LABS: BASO % 0.3 % (0.0-2.0); GRAN # 9.6 K/mm3 (1.4-6.5); GRAN % 89.8 % (42.2-75.2); LYMPH # 0.4 K/mm3 (1.2-3.4); MEAN CELL VOLUME 79 fl (80.0-100.0); MEAN CORPUSCULAR HGB CONC 30 g/dl (33.0-37.0); MEAN PLATELET VOLUME 9.8 fl (7.4-10.4); MONO # 0.5 K/mm3 (0.1-0.6); PLATELET COUNT 265 K/mm3 (130-400); RED BLOOD COUNT 3.41 M/mm3 (4.10-5.30); REDCELL DISTRIBUTION WIDTH-CV 27.2 % (11.5-14.5)
[2021-08-01 07:58] LABS: HEMOGLOBIN 8.1 g/dl (12.5-16.0); MEAN CORPUSCULAR HEMOGLOBIN 24 pg (27-31)
[2021-08-01] MEDS ORDERED: XARELTO15 MG PO (11:52)
[2021-08-01] MEDS ORDERED: PREDNISONE20 MG PO (11:53)
[2021-08-01] MEDS ORDERED: OMNICEF 300MG300 MG PO (11:54)
[2021-08-01] MEDS ORDERED: SYNTHROID 0.10.15 MG PO (11:54)
[2021-08-01 12:46] VITALS: BP 115/46; PULSE 62; TEMP 97.7
--- NOTE | 2021-08-01 12:52 | NUR ---
Pt sitting up in bed eating her lunch. Daughter remains at bedside. Dr Chris has been in and discussed her transferring to [facility]. Plan is to go this afternoon. Social work setting up transfer time. Pt has no complaints
[2021-08-01 13:02] VITALS: BP 115/46; PULSE 62; TEMP 97.7
--- NOTE | 2021-08-01 13:45 | NUR ---
Delivery Route Driver met with patient and patient's daughter, Kimberli (ph#[phone]) to discuss discharge plan. SW discussed post acute rehab and patient's daughter, Kimberli feels this would be in patient's best interest. Patient agrees and her preferences are 1)[facility] and 2) [place] [facility]. MARIELLA faxed referrals to both facilities. Luis E with [facility] contacted MARIELLA and advised they can accept today. MARIELLA faxed discharge orders and negative covid results. MARIELLA arranged transport time for 1330. MARIELLA notified patient and Kimberli of transport time. MARIELLA also notified Joe at [facility] that patient is discharging to first preference. Discharge Plan: [facility] today
--- NOTE | 2021-08-01 14:22 | NUR ---
Pt leaving per transportation from [facility]
== END 2021-08-01 14:22 | DRG 683 ==
LOC: COL.ER 15:10 → SURG 20:46
PROVIDERS: Nurse Practitioner Family; Personal Emergency Response Attendant; Physician Assistant; ADMIT Internal Medicine
DX: N17.9 Acute kidney failure, unspecified (principal); N39.0 Urinary tract infection, site not specified; I50.22 Chronic systolic (congestive) heart failure; E87.2 Acidosis; E87.1 Hypo-osmolality and hyponatremia; I73.9 Peripheral vascular disease, unspecified; I48.91 Unspecified atrial fibrillation; I08.1 Rheumatic disorders of both mitral and tricuspid valves; E86.0 Dehydration; I11.0 Hypertensive heart disease with heart failure; E78.5 Hyperlipidemia, unspecified; I27.20 Pulmonary hypertension, unspecified; D64.9 Anemia, unspecified; E03.9 Hypothyroidism, unspecified; I70.1 Atherosclerosis of renal artery; E87.5 Hyperkalemia; B96.20 Unspecified Escherichia coli [E. coli] as the cause of diseases classified elsewhere; I95.9 Hypotension, unspecified; Z95.0 Presence of cardiac pacemaker; Z86.73 Personal history of transient ischemic attack (TIA), and cerebral infarction without residual deficits; Z88.2 Allergy status to sulfonamides; Z79.01 Long term (current) use of anticoagulants; Z79.82 Long term (current) use of aspirin; Z20.822 Contact with and (suspected) exposure to COVID-19; Z23 Encounter for immunization
CPT/HCPCS: 99223-AI; 99232-AI; 99233-AI; 99239; J0696; J2920; J7030; J7512

== ENCOUNTER 2021-12-29 09:24 | Day surgery (SDC) | payer MEDICARE, OTHER ==
[~2021-12-29] VITALS: Ht 165.2 cm; Wt 74.7 kg
[~2021-12-29 09:24] MED LIST changes: +OMNICEF 300MG300 MG PO; +PREDNISONE20 MG PO; +XARELTO15 MG PO
[2021-12-29 10:38] LABS: INR 1.9 (0.8-3.0); PROTHROMBIN TIME 22.5 SECONDS (9.7-12.8)
[2021-12-29 10:41] VITALS: BP 153/92; PULSE 90; TEMP 97.8
[2021-12-29 10:45] LABS: POTASSIUM 4.3 mmol/L (3.5-4.5)
[2021-12-29] MEDS ORDERED: ZEBETA 5MG5 MG PO (10:50)
[2021-12-29] MEDS ORDERED: VERQUVO5 MG PO (10:51)
[2021-12-29 11:12] LABS: THYROID STIMULATING HORMONE 16.369 uIU/mL (0.350-4.940)
[2021-12-29 12:30] VITALS: BP 119/71; PULSE 60
[2021-12-29 12:45] VITALS: BP 130/70; PULSE 60
[2021-12-29 13:00] VITALS: BP 137/73; PULSE 60
[2021-12-29 13:15] VITALS: BP 133/71; PULSE 60
[2021-12-29 13:30] VITALS: BP 146/69; PULSE 60
--- NOTE | 2021-12-29 13:30 | NUR ---
DC instructions reviewed with pt and her . Both express understanding. Pt has tolerated PO without issue following procedures. She is assisted to restroom with steady gait. IV DC'd, site wrapped with coban. She has remained in paced rhythm, post procedure EKG completed. Pt is assisted out to 's car by wheelchair.
== END 2021-12-29 13:41 | disposition home or self-care (01) ==
LOC: COL.CAR 09:24
PROVIDERS: Internal Medicine Interventional Cardiology
DX: I48.0 Paroxysmal atrial fibrillation (principal); I08.3 Combined rheumatic disorders of mitral, aortic and tricuspid valves; G45.9 Transient cerebral ischemic attack, unspecified; I25.10 Atherosclerotic heart disease of native coronary artery without angina pectoris; I11.0 Hypertensive heart disease with heart failure; I50.22 Chronic systolic (congestive) heart failure; I73.9 Peripheral vascular disease, unspecified
CPT/HCPCS: J2704; J7120

== ENCOUNTER 2022-01-23 10:26 | Emergency (ER) | payer MEDICARE, OTHER ==
[~2022-01-23] VITALS: Ht 165.1 cm; Wt 70.5 kg
[~2022-01-23 10:26] MED LIST changes: +VERQUVO5 MG PO; +ZEBETA 5MG5 MG PO
[2022-01-23 10:33] VITALS: TEMP 98.2
[2022-01-23 10:54] LABS: BASO # 0.1 K/mm3 (0.0-0.2); BASO % 1.6 % (0.0-2.0); EOS # 0.1 K/mm3 (0.0-0.7); EOS % 1.4 % (0.0-4.0); GRAN # 3.4 K/mm3 (1.4-6.5); HEMATOCRIT 34.8 % (37.0-47.0); HEMOGLOBIN 10.9 g/dl (12.5-16.0); LYMPH % 20.1 % (20.0-51.0); MEAN CELL VOLUME 79 fl (80.0-100.0); MEAN CORPUSCULAR HEMOGLOBIN 25 pg (27-31); MEAN CORPUSCULAR HGB CONC 31 g/dl (33.0-37.0); MEAN PLATELET VOLUME 9.4 fl (7.4-10.4); MONO # 0.5 K/mm3 (0.1-0.6); MONO % 9.7 % (1.7-9.3); PLATELET COUNT 250 K/mm3 (130-400); RED BLOOD COUNT 4.41 M/mm3 (4.10-5.30); REDCELL DISTRIBUTION WIDTH-CV 19.9 % (11.5-14.5)
[2022-01-23 11:12] LABS: ALBUMIN 3.7 gm/dL (3.4-4.8); BILIRUBIN,TOTAL 0.7 mg/dL (0.2-1.2); CALCIUM 9.5 mg/dL (8.4-10.2); CREATININE, serum 1.65 mg/dL (0.57-1.11); POTASSIUM 4.2 mmol/L (3.5-4.5); TOTAL PROTEIN 8.8 gm/dL (6.2-8.1)
[2022-01-23 11:17] LABS: TROPONIN-I 0.011 ng/mL (0.00-0.033)
[2022-01-23] MEDS ORDERED: DOXYCYCLINE 10100 MG PO (11:46)
[2022-01-23 11:49] VITALS: BP 104/52; PULSE 63
== END 2022-01-23 11:50 | disposition home or self-care (01) ==
LOC: COL.ER 10:26
PROVIDERS: Emergency Medicine
DX: R00.2 Palpitations (principal); I48.91 Unspecified atrial fibrillation; E87.1 Hypo-osmolality and hyponatremia; R91.8 Other nonspecific abnormal finding of lung field; Z86.73 Personal history of transient ischemic attack (TIA), and cerebral infarction without residual deficits; Z95.0 Presence of cardiac pacemaker; Z88.1 Allergy status to other antibiotic agents; Z88.2 Allergy status to sulfonamides; Z20.822 Contact with and (suspected) exposure to COVID-19; Z79.01 Long term (current) use of anticoagulants

== ENCOUNTER 2022-09-01 23:07 | Emergency (ER) | payer MEDICARE, OTHER ==
[~2022-09-01] VITALS: Ht 165.1 cm; Wt 75.0 kg
[~2022-09-01 23:07] MED LIST changes: +DOXYCYCLINE 10100 MG PO
[2022-09-02 01:21] VITALS: BP 151/82; PULSE 77
== END 2022-09-02 01:24 | disposition home or self-care (01) ==
LOC: COL.ER 23:07
DX: S09.90XA Unspecified injury of head, initial encounter (principal); S01.01XA Laceration without foreign body of scalp, initial encounter; I48.91 Unspecified atrial fibrillation; Z95.0 Presence of cardiac pacemaker; Z28.310 Unvaccinated for COVID-19; Z79.01 Long term (current) use of anticoagulants; W18.2XXA Fall in (into) shower or empty bathtub, initial encounter

== ENCOUNTER 2022-10-08 10:51 | Day surgery (SDC) | payer MEDICARE, OTHER ==
[2022-10-08] VITALS (7 sets, daily range): BP systolic 97–124; BP diastolic 46–87; PULSE 61–80; TEMP 97.7
[~2022-10-08] VITALS: Ht 165.1 cm; Wt 68.1 kg
[2022-10-08 12:06] LABS: INR 1.8 (0.8-3.0); PROTHROMBIN TIME 20.2 SECONDS (9.7-12.8)
[2022-10-08 12:07] LABS: POTASSIUM 4.5 mmol/L (3.5-4.5)
[2022-10-08] MEDS ORDERED: CORDARONE200 MG/TAB PO (12:19)
[2022-10-08] MEDS ORDERED: ENTRESTO 24 MG1 EACH PO (12:19)
[2022-10-08] MEDS ORDERED: ALDACTONE 25MG25 M1 PO (12:20)
[2022-10-08] MEDS ORDERED: JARDIANCE10 PO (12:20)
[2022-10-08] MEDS ORDERED: BYSTOLIC2.5 MG PO (12:21)
[2022-10-08] MEDS ORDERED: DEMADEX 20MG20 M1 PO (12:21)
[2022-10-08 12:39] LABS: THYROID STIMULATING HORMONE 0.968 uIU/mL (0.350-4.940)
[2022-10-08] MEDS ORDERED: PACERONE200 MG PO (14:28)
--- NOTE | 2022-10-08 16:27 | NUR ---
Pt discharged at approx 1615. she left accompanied by her and daughter. her blood pressures dipped low immediately following her procedures but trended back upwards towards baseline as she woke up and the propofol wore off. her last recorded blood pressure before discharge was 107/45. she verbalized an understanding of her discharge instructions and was free from complaints or concerns at time of discharge. she tolerated po fluids and food during her post-op period. [facility] and was able to ambulate a few feet at a time to make it to her 's car.
== END 2022-10-08 16:15 | disposition home or self-care (01) ==
LOC: COL.CAR 10:51
PROVIDERS: Internal Medicine Interventional Cardiology
DX: I48.0 Paroxysmal atrial fibrillation (principal); I50.22 Chronic systolic (congestive) heart failure; Z79.899 Other long term (current) drug therapy
CPT/HCPCS: J1756; J2704; J7030

== ENCOUNTER → 2023-08-05 | Outpatient (REF) | payer MEDICARE ==
[~2023-08-05] MED LIST changes: +BYSTOLIC2.5 MG PO; +CORDARONE200 MG/TAB PO; +DEPAKOTE 125MG125 MG PO; +DULCOLAX S10 MG/SUPP RC; +GOOD SENSE400 MG/5 M PO; +IMODIUM 2MG CAPS2 MG PO; +JARDIANCE10 PO; +K-TAB10 PO; +MYLANTA COAT-C355 ML PO; +SYNTHROID0.175 MG PO; +TYLENOL 325MG325 MG PO; +TYLENOL SU650 MG/SUP RC; +VITAMINC1000TA PO
[2023-08-05 11:28] LABS: CALCIUM 8.7 mg/dL (8.4-10.2); CREATININE, serum 1.31 mg/dL (0.57-1.11); POTASSIUM 3.3 mmol/L (3.5-4.5)
== END ==
LOC: ZCOL.LAB 11:18
PROVIDERS: Internal Medicine Nephrology
DX: E03.9 Hypothyroidism, unspecified (principal); R79.89 Other specified abnormal findings of blood chemistry

== ENCOUNTER 2024-01-20 18:25 | Inpatient (IN) | payer MEDICARE, BC, MEDICAID ==
[~2024-01-20] VITALS: Ht 165.1 cm; Wt 80.2 kg
[~2024-01-20 18:25] MED LIST changes: -SYNTHROID0.175 MG PO
[2024-01-20] MEDS ORDERED: Ondansetron 4 MG/2 ML VIAL IV ONE (18:30)
[2024-01-20] MEDS ORDERED: Morphine 4 MG/ML VIAL IV ONE ×2 (18:30→20:00)
[2024-01-20 18:47] LABS: BASO # 0.1 K/mm3 (0.0-0.2); BASO % 1.2 % (0.0-2.0); EOS # 0.2 K/mm3 (0.0-0.7); GRAN # 3.2 K/mm3 (1.4-6.5); GRAN % 63.9 % (42.2-75.2); HEMOGLOBIN 10.7 g/dl (12.5-16.0); LYMPH # 1.1 K/mm3 (1.2-3.4); LYMPH % 21.8 % (20.0-51.0); MEAN CELL VOLUME 95 fl (80.0-100.0); MEAN CORPUSCULAR HEMOGLOBIN 31 pg (27-31); MEAN CORPUSCULAR HGB CONC 32 g/dl (33.0-37.0); MEAN PLATELET VOLUME 9.7 fl (7.4-10.4); MONO # 0.5 K/mm3 (0.1-0.6); MONO % 9.7 % (1.7-9.3); PLATELET COUNT 162 K/mm3 (130-400); REDCELL DISTRIBUTION WIDTH-CV 16.2 % (11.5-14.5)
[2024-01-20 18:49] LABS: HEMATOCRIT 33.4 % (37.0-47.0)
[2024-01-20 19:05] LABS: ALBUMIN 3.2 g/dL (3.4-4.8); BILIRUBIN,TOTAL 0.9 mg/dL (0.2-1.2); CREATININE, serum 1.41 mg/dL (0.57-1.11); POTASSIUM 3.9 mEq/L (3.5-4.5); TOTAL PROTEIN 7.9 g/dl (6.2-8.1)
[2024-01-20 20:27] LABS: COLLECTION METHOD CATHETER
[2024-01-20 20:32] LABS: URINE APPEARANCE CLOUDY (CLEAR/HAZY); URINE BLOOD NEGATIVE (NEGATIVE); URINE COLOR YELLOW (YELLOW); URINE GLUCOSE 2+ (NEGATIVE); URINE KETONE NEGATIVE (NEGATIVE); URINE NITRATE NEGATIVE (NEGATIVE); URINE PROTEIN(semi-quant) NEGATIVE (NEGATIVE); URINE UROBILINOGEN 0.2 E.U/dL (0.2-1.0)
[2024-01-20] MEDS ORDERED: oxyCODONE 5 MG TAB PO PRN (21:45)
[2024-01-20] MEDS ORDERED: D5 1/2 NS 1,000 ML IV SCH (21:45)
[2024-01-20] MEDS ORDERED: Morphine 4 MG/ML VIAL IV PRN (21:45)
[2024-01-20] MEDS ORDERED: Naloxone 0.4 MG/ML VIAL IV PRN (21:45)
[2024-01-20 22:09] LABS: INR 1.4 (0.8-3.0); PROTHROMBIN TIME 15.2 SECONDS (9.7-12.8)
[2024-01-20] MEDS ORDERED: Acetaminophen 500 MG TAB PO SCH (22:43)
[2024-01-20] MEDS ORDERED: Divalproex 125 MG Delayed Release Sprinkles CAP PO SCH (22:48)
[2024-01-20] MEDS ORDERED: ALPRAZolam 0.5 MG TAB PO SCH (22:50)
[2024-01-20 22:51] VITALS: BP 132/66; PULSE 67; TEMP 97.4
[2024-01-20] MEDS ORDERED: MYLANTA MAXIMU355 M1 PO (22:53)
[2024-01-20] MEDS ORDERED: TYLENOL 325MG325 MG PO (22:53)
[2024-01-20] MEDS ORDERED: VISINE TEARS 0.30 ML OU (22:54)
[2024-01-21] VITALS (13 sets, daily range): BP systolic 96–132; BP diastolic 54–75; PULSE 62–67; TEMP 97.4–99.2
--- NOTE | 2024-01-21 00:37 | NUR ---
Patient arrived to the floor at 2230 per cart from the ED with Andi, Lyle/Ox2-3,knows her date of , doesn't know where she's at, knows that she broke her hip, admission assessment and intake done, medrec reviewed, applied TEDs and SCD's per order, on oxygen at 2LPM via nasal cannula, with quinonez to dependent drainage, rates her pain at 6/10, oxycodone given, denies further needs, call light and personal items within reach, fall precautions in place, will continue to monitor.
--- NOTE | 2024-01-21 02:50 | NUR ---
Patient resting in bed, eyes closed, looks comfortable, pacemaker interrogation done at this time.
[2024-01-21 08:02] LABS: BASO # 0.1 K/mm3 (0.0-0.2); BASO % 0.9 % (0.0-2.0); EOS # 0.1 K/mm3 (0.0-0.7); EOS % 1.8 % (0.0-4.0); GRAN # 4.8 K/mm3 (1.4-6.5); GRAN % 71.1 % (42.2-75.2); LYMPH # 0.9 K/mm3 (1.2-3.4); LYMPH % 12.9 % (20.0-51.0); MEAN CELL VOLUME 94 fl (80.0-100.0); MEAN CORPUSCULAR HGB CONC 33 g/dl (33.0-37.0); MEAN PLATELET VOLUME 10.4 fl (7.4-10.4); MONO # 0.9 K/mm3 (0.1-0.6); PLATELET COUNT 157 K/mm3 (130-400); RED BLOOD COUNT 2.79 M/mm3 (4.10-5.30); REDCELL DISTRIBUTION WIDTH-CV 16.2 % (11.5-14.5)
[2024-01-21 08:03] LABS: HEMATOCRIT 26.2 % (37.0-47.0); HEMOGLOBIN 8.6 g/dl (12.5-16.0); MEAN CORPUSCULAR HEMOGLOBIN 31 pg (27-31)
[2024-01-21 08:46] LABS: CALCIUM 8.2 mg/dL (8.4-10.2); CREATININE, serum 1.55 mg/dL (0.57-1.11)
[2024-01-21] MEDS ORDERED: Amiodarone 200 MG TAB PO SCH (09:00)
[2024-01-21] MEDS ORDERED: Empagliflozin 10 MG TAB PO SCH (09:00)
[2024-01-21] MEDS ORDERED: Torsemide 20 MG TAB PO SCH (09:00)
--- NOTE | 2024-01-21 10:05 | NUR ---
Data: Patient's Daughter accepted Spiritual Care visit offered during [employer] rounds. Patient was on/off sleeping during visit. Assessment: Patient stated she was in pain, but now is not. Family desired prayer. Plan of Care: [employer] prayed for healing for Patient and peace/ann for the family. Patient's Daughter thanked [employer] for the visit. Chaplains will remain available as needed/requested whil Patient is admitted to this hospital.
--- NOTE | 2024-01-21 11:12 | NUR ---
Pt resting in bed drowsy but arrousable, oreinted x3. Family at bedside, quinonez to dependent drainage with good output, pt complaining of no pain. Pt continues to fall asleep during assesment, tolerating deit well, no needs at this time, will continue to monitor.
--- NOTE | 2024-01-21 11:27 | NUR ---
MARIELLA met with patient's daughter Jzamyn ([phone]) and Feng ([phone]) to complete initial assessment for discharge planning. Patient sleeping peacefully in bed. Jazmyn reports that patient resides in [facility] for the past 9 months. Patient has DPOA assigned to her Gustabo and two daughters Jazmyn and Shannan as alternates. Patient sees Dr. Conklin as her PCP and [facility]. Patient is usually ambulatory with a walker. Plan is for patient to return to [facility] at discharge. Patient pending cardiac clearance for surgery to repair hip fracture. Clinical information will be sent to [facility] for coordination of patient's return to appropriate level of care due to dementia. Discharge plan: [facility] LTC vs SNF
--- NOTE | 2024-01-21 20:41 | NUR ---
Patient in bed, drowsy but arousable, she thought it's morning and she's in [place], reorientated the patient, still with INT to right forearm infusing well, with quinonez to dependent drainage, denies further needs, call light and personal items within reach, fall precautions in place, will continue to monitor.
[2024-01-21] MEDS ORDERED: QUEtiapine 25 MG TAB PO SCH (21:00)
--- NOTE | 2024-01-21 22:35 | NUR ---
Patient awake and alert at this time, confused, hollering out for help, scheduled seroquel and ativan given, reports she's in pain, medicated with oxycodone, BP 115/63, ice pack on, will continue to monitor.
[2024-01-22] VITALS (14 sets, daily range): BP systolic 101–135; BP diastolic 50–65; PULSE 62–76; TEMP 97.9–99.4
--- NOTE | 2024-01-22 06:20 | NUR ---
Patient awakened for scheduled pills, doesn't open her eyes but stated that she's awake, checked pupils and they're fine, VSS, checked blood sugar and it was 93, charged nurse informed, charge nurse applied wash cloth to open her eyes, opened her eyes for a little bit and then closed her eyes again, will closely monitor, will report off to dayshift nurse.
[2024-01-22 07:01] LABS: BASO % 0.4 % (0.0-2.0); EOS # 0.1 K/mm3 (0.0-0.7); EOS % 1.6 % (0.0-4.0); GRAN # 4.4 K/mm3 (1.4-6.5); GRAN % 65.4 % (42.2-75.2); LYMPH # 1.2 K/mm3 (1.2-3.4); LYMPH % 18.5 % (20.0-51.0); MEAN CELL VOLUME 96 fl (80.0-100.0); MEAN CORPUSCULAR HGB CONC 33 g/dl (33.0-37.0); MEAN PLATELET VOLUME 10.6 fl (7.4-10.4); MONO # 0.9 K/mm3 (0.1-0.6); MONO % 13.7 % (1.7-9.3); PLATELET COUNT 127 K/mm3 (130-400); RED BLOOD COUNT 2.51 M/mm3 (4.10-5.30); REDCELL DISTRIBUTION WIDTH-CV 16.2 % (11.5-14.5)
[2024-01-22 07:06] LABS: HEMATOCRIT 24.2 % (37.0-47.0); HEMOGLOBIN 7.9 g/dl (12.5-16.0); MEAN CORPUSCULAR HEMOGLOBIN 31 pg (27-31)
[2024-01-22 07:11] LABS: CALCIUM 7.7 mg/dL (8.4-10.2); CREATININE, serum 2.02 mg/dL (0.57-1.11); POTASSIUM 4.5 mEq/L (3.5-4.5)
--- NOTE | 2024-01-22 09:30 | NUR ---
Patient is resting in bed, sleeping. She open her eyes after calling her name but easily comes back to sleep. Pt alert to self. States no pain at this time. She did not had her breakfast. Because of drowsiness pills provided with appplesauce. No problems swalloing. Telemetry in place, paced. Catheter quinonez with yellow clear output. Assessment completed, meds given. No further needs at this time. Call light within reach. Bed alarm on.
[2024-01-22] MEDS ORDERED: NS 1,000 ML IV SCH (10:15)
--- NOTE | 2024-01-22 11:10 | NUR ---
Patient continue sleeping. Fluids started per orders. Family at bedside. Daugter updated about plan.
--- NOTE | 2024-01-22 13:23 | NUR ---
Patient's met with MARIELLA in [place] and provided updated DPOA documents dates 2021. Copy placed on patient's chart. asked for update on plan for surgery. SW informed that everything is pending cardiology consult.
--- NOTE | 2024-01-22 19:00 | NUR ---
Patient awake at this time, this nurse assisted feeding the patient and ate 75% of her supper tray.
--- NOTE | 2024-01-22 20:51 | NUR ---
Patient awake at this time, keeps hollering out for her mom, confused, denies pain or discomfort, crushed pills with apple sauce and tolerated, was repositioned 30minutes ago by our charge nurse and tech, quinonez catheter care done, still with IV infusing well on right forearm with NS at 75cc/hr, call light and personal items within reach, will continue to monitor.
[2024-01-23] VITALS (14 sets, daily range): BP systolic 102–121; BP diastolic 32–63; PULSE 63–87; TEMP 97.7–99.4
--- NOTE | 2024-01-23 02:37 | NUR ---
Patient is on NPO, Reanna, the HOSPITAL INTERN informed her and received an order NS at 60cc/hr x1.
--- NOTE | 2024-01-23 02:37 | NUR ---
Patient on NPO, made Reanna, the TEXTILE SCRAP SALVAGER aware about it, received an order for NS 1L at 60cc/hr x 1.
[2024-01-23] MEDS ORDERED: NS 1,000 ML IV ONE (03:00)
[2024-01-23 05:55] LABS: BASO % 0.5 % (0.0-2.0); EOS # 0.1 K/mm3 (0.0-0.7); EOS % 1.2 % (0.0-4.0); GRAN # 4.6 K/mm3 (1.4-6.5); GRAN % 70.4 % (42.2-75.2); LYMPH # 0.9 K/mm3 (1.2-3.4); LYMPH % 13.7 % (20.0-51.0); MEAN CELL VOLUME 96 fl (80.0-100.0); MEAN CORPUSCULAR HGB CONC 32 g/dl (33.0-37.0); MEAN PLATELET VOLUME 10.4 fl (7.4-10.4); MONO # 0.9 K/mm3 (0.1-0.6); MONO % 13.9 % (1.7-9.3); PLATELET COUNT 143 K/mm3 (130-400); RED BLOOD COUNT 2.46 M/mm3 (4.10-5.30); REDCELL DISTRIBUTION WIDTH-CV 16.4 % (11.5-14.5)
[2024-01-23 05:57] LABS: HEMATOCRIT 23.5 % (37.0-47.0); HEMOGLOBIN 7.6 g/dl (12.5-16.0); MEAN CORPUSCULAR HEMOGLOBIN 31 pg (27-31)
[2024-01-23 06:08] LABS: CALCIUM 7.6 mg/dL (8.4-10.2); CREATININE, serum 1.97 mg/dL (0.57-1.11); POTASSIUM 4.6 mEq/L (3.5-4.5)
--- NOTE | 2024-01-23 07:00 | NUR ---
BEDSIDE REPORT GIVEN AT THIS TIME. PT VOICES NO COMPLAINTS OR CONCERNS AT THIS TIME. CALL LIGHT WITHIN REACH.
--- NOTE | 2024-01-23 08:25 | NUR ---
SHIFT ASSESSMENT COMPLETED AT THIS TIME. A&O X2. PT VOICES NO CONCERNS OF PAIN. SMITH IN PLACE WITH GOOD URINARY OUTPUT. MORNING MEDICATIONS ADMINISTERED AT THIS TIME. PT OFFERED SIPS OF WATER WITH MEDICATIONS D/T NPO STATUS. NO COMPLAINTS OR CONCERNS AT THIS TIME. CALL LIGHT WITHIN REACH. AT BEDSIDE.
--- NOTE | 2024-01-23 11:20 | NUR ---
PRBC transfusion started at 1100. This nurse remained at bedside for first 15 minutes. Patient without s/s blood transfusion related complications or adverse reactions. Rate increased to 100ml/hr, patient has history of heart failure- will monitor closely. and daughter at bedside.
--- NOTE | 2024-01-23 11:45 | NUR ---
[facility]
--- NOTE | 2024-01-23 13:07 | NUR ---
leather production worker was notified patient would receive a transfusion today and that surgery was on hold at this time. SW notified [facility]. MARIELLA received a call from patient's nurse at [facility] requesting updates. MARIELLA provided the above update and explained she could request Carmelita Mckeon at [facility] email her the clinical updates to her work email. Patient's nurse stated that would be great. MARIELLA notified Carmelita that patient's [facility] nurse was asking about updates. Carmelita stated she would speak with her and send the clinical information. Discharge plan: Return to [facility]
--- NOTE | 2024-01-23 13:08 | NUR ---
Patient tolerating blood tranfusion- no s/s blood transfusion reaction. Rate increased to 120ml/hr.
--- NOTE | 2024-01-23 14:27 | NUR ---
Blood transfusion completed. Patient without s/s blood transfusion reaction.
--- NOTE | 2024-01-23 14:34 | NUR ---
PRE-OP CHECKLIST COMPLETED AT THIS TIME. CONSENT SIGNED. PT TO SURGERY VIA BED. FAMILY ESCORTED TO WAITING ROOM BY NAVI TRAVIS.
[2024-01-23] MEDS ORDERED: ePHEDrine 50 MG/ML VIAL ONE (15:01)
[2024-01-23] MEDS ORDERED: Rocuronium 50 MG/5 ML Multi-Dose VIAL ONE (15:01)
[2024-01-23] MEDS ORDERED: fentaNYL 50 MCG/ML 2 ML VIAL ONE (15:01)
[2024-01-23] MEDS ORDERED: Etomidate 20 MG/10 ML VIAL IV ONE (15:01)
--- NOTE | 2024-01-23 16:15 | NUR ---
PT RETURNS TO ROOM VIA BED. PROCEDURE NOT DONE D/T BLOOD PRESSURE CONCERNS BY ANESTESIAOLOGIST PER BARBARA IN PACU. PT DROWSY BUT AROUSABLE AND ABLE TO ANSWER QUESTIONS. PT RETURNS ON OXYGEN VIA NC. FAMILY AT BEDSIDE AND AWARE OF TRANSFER TO [facility] PER MD.
--- NOTE | 2024-01-23 16:26 | NUR ---
NOTIFIED DR PETERSEN PT ARRIVED BACK TO ROOM. NO FURTHER ORDERS AT THIS TIME.
[2024-01-23 17:41] LABS: HEMATOCRIT 26.9 % (37.0-47.0); HEMOGLOBIN 8.9 g/dl (12.5-16.0)
--- NOTE | 2024-01-23 19:01 | NUR ---
PT TO TRANSFER TO [facility] AT 1930 PER CORPORATE INVESTIGATOR. FAMILY MADE AWARE, DAUGHTERS AT BEDSIDE. LEFT TO GO HOME AND REST. REPORT CALLED TO STAFF. ICE TO RIGHT HIP. PT MEDICATED WITH ROXICODONE FOR COMPLAINTS OF PAIN WITH REPOSITIONING. PT DROWSY BUT AROUSES EASILY. BEDSIDE REPORT GIVEN TO STANLEY.
--- NOTE | 2024-01-23 19:48 | NUR ---
PT LEFT THE FLOOR AT THIS TIME VIA [facility]. PT AT 2L VIA [place]. SMITH CATHETER IN PLACE. IV IN RIGHT HAND WITH NS RUNNING. D/C TELEMETRY. PT DROWSY BUT AWAKENED TO VOICE.
== END 2024-01-23 19:48 | disposition critical access hospital (66) | DRG 536 ==
LOC: COL.ER 18:25 → SURG 21:42
PROVIDERS: Nurse Practitioner; Nurse Practitioner Family; ADMIT Internal Medicine
DX: S72.141A Displaced intertrochanteric fracture of right femur, initial encounter for closed fracture (principal); N17.9 Acute kidney failure, unspecified; I50.20 Unspecified systolic (congestive) heart failure; N18.30 Chronic kidney disease, stage 3 unspecified; I48.91 Unspecified atrial fibrillation; Z95.0 Presence of cardiac pacemaker; Z79.01 Long term (current) use of anticoagulants; I27.20 Pulmonary hypertension, unspecified; I10 Essential (primary) hypertension; E78.5 Hyperlipidemia, unspecified; D64.9 Anemia, unspecified; I73.9 Peripheral vascular disease, unspecified; Z86.73 Personal history of transient ischemic attack (TIA), and cerebral infarction without residual deficits; E03.9 Hypothyroidism, unspecified; F03.90 Unspecified dementia, unspecified severity, without behavioral disturbance, psychotic disturbance, mood disturbance, and anxiety; F41.9 Anxiety disorder, unspecified
CPT/HCPCS: A4314; A9270; A9284; J2598; J2704; J3010; J7030; P9016